=== PATIENT | male | born 1945 | race Caucasian/White ===

== ENCOUNTER 2017-04-05 22:48 | Emergency (ER) | payer OTHER ==
[~2017-04-05] VITALS: Ht 175.3 cm; Wt 96.8 kg
[~2017-04-05 22:48] MED LIST: CYANOCOBALAM1000 MCG PO; GLUCOSAMINE &1 EACH PO; PRILOSEC20 MG PO; PRILOSEC40 MG PO; TYLENOL EXTRA500 MG PO; VIAGRA100 MG PO; VIAGRA25 MG; VITAMIN D2000 UNIT PO; VITAMIN D5000 UNIT PO
[2017-04-06] MEDS ORDERED: ZITHROMAX Z-PA250 MG PO (00:52)
[2017-04-06 01:07] VITALS: BP 162/94
== END 2017-04-06 01:08 | disposition home or self-care (01) ==
LOC: EME 22:48
DX: T18.128A Food in esophagus causing other injury, initial encounter (principal); R91.8 Other nonspecific abnormal finding of lung field; K44.9 Diaphragmatic hernia without obstruction or gangrene; K21.9 Gastro-esophageal reflux disease without esophagitis; N40.0 Benign prostatic hyperplasia without lower urinary tract symptoms
CPT/HCPCS: 70360; 71010; 99281; 99284

== ENCOUNTER → 2017-08-19 | Outpatient (CLI) | payer MEDICARE, OTHER ==
[~2017-08-19] MED LIST changes: +ZITHROMAX Z-PA250 MG PO
== END | disposition home or self-care (01) ==
LOC: CDC 10:33
DX: Z01.810 Encounter for preprocedural cardiovascular examination (principal); N43.3 Hydrocele, unspecified; R94.31 Abnormal electrocardiogram [ECG] [EKG]
CPT/HCPCS: 93000